=== PATIENT | female | born 1965 | race African-American/Black ===

== ENCOUNTER 2017-12-09 15:31 | Inpatient (IN) | payer OTHER ==
[2017-12-09 17:33] VITALS: BMI 31.8
--- NOTE | 2017-12-09 19:45 | HP ---
CIWA Score - CIWA Score Nausea/Vomitin-No Nausea/No Vomiting Muscle Tremors: 2 Anxiety: 3 Agitation: 1-Slight > Activity Paroxysmal Sweats: 3 Orientation: 2-Disoriented Date<2 days Tacttile Disturbances: 2-Mild Itch/Numbness/Burn (right arm and fingers) Auditory Disturbances: 2-Mild Harshness/Frighten Visual Disturbances: 2-Mild Sensitivity Headache: 0-None Present CIWA-Ar Total Score: 17 Admission ROS S - HPI Chief Complaint: I am here to get better, I recently relapse to use alcohol and crack , I am getting the sweats" Allergies/Adverse Reactions: Allergies Allergy/AdvReac Type Severity Reaction Status Date / Time aripiprazole [From Abilify] Allergy Intermediate Verified 12/09/17 18:21 chlorpromazine HCl Allergy Intermediate Verified 12/09/17 18:21 [From Thorazine] Penicillins Allergy Intermediate Rash Verified 12/09/17 18:21 risperidone [From Risperdal] Allergy Intermediate Verified 12/09/17 18:21 sulfamethoxazole Allergy Intermediate Rash Verified 12/09/17 18:21 [From Bactrim] trimethoprim [From Bactrim] Allergy Intermediate Rash Verified 12/09/17 18:21 ziprasidone HCl [From Geodon] Allergy Intermediate Verified 12/09/17 18:21 ziprasidone mesylate Allergy Intermediate Verified 12/09/17 18:21 [From Geodon] History of Present Illness: 52 yo female with hx of nicotine, alcohol and crack / cocaine dependence is here seeking detox. PMHX: gout, neuropathy, OA b/l knees and back, Bipolar Schizo- affective DM II, HTN, seizures on medications. Last seizure 8 months ago. Denies suicidal / homicidal ideation. Attempted suicide by drinking oils, December 2016. Longest period of sobriety 4 years. Last detox [facility] 12/22/15 - , reports recent relapse 9 months ago. - Ebola screening Have you traveled outside of the country in the last 21 days: No Have you had contact with anyone from an Ebola affected area: No Have you been sick,other than usual withdrawal symptoms: No Do you have a fever: No - Review of Systems Constitutional: Chills, Changes in sleep EENT: reports: Nose Congestion, Other (sore throat x 2 days) Cardiac: reports: No Symptoms Reported GI: reports: Poor Fluid Intake : reports: No Symptoms Reported Musculoskeletal: reports: Back Pain, Joint Pain Integumentary: reports: No Symptoms Reported Neuro: reports: Numbness, Tingling (right arm) Endocrine: reports: No Symptoms Reported Hematology: reports: No Symptoms Reported Psychiatric: reports: Orientated x3, Depressed Other Systems: Reviewed and Negative Patient History - Patient Medical History Hx Anemia: No Hx Asthma: Yes Hx Chronic Obstructive Pulmonary Disease (COPD): Yes Hx Cancer: No Hx Cardiac Disorders: No Hx Congestive Heart Failure: No Hx Hypertension: Yes Hx Hypercholesterolemia: Yes (ON CRESTOR) Hx Pacemaker: No HX Cerebrovascular Accident: No Hx Seizures: Yes (last seizure 8 months ago ) Hx Dementia: No Hx Diabetes: Yes Hx Gastrointestinal Disorders: Yes (Acids Reflux) Hx Liver Disease: No Hx Genitourinary Disorders: No Hx Sexually Transmitted Disorders: No Hx Renal Disease (ESRD): No Hx Thyroid Disease: No Hx Human Immunodeficiency Virus (HIV): Yes (since 1997 on med, reports compliance with medications ) Hx Hepatitis C: No Hx Depression: Yes Hx Suicide Attempt: Yes (8 months ago ) Hx Bipolar Disorder: Yes (schizoaffective disorder) Hx Schizophrenia: Yes - Patient Surgical History Past Surgical History: No Hx Neurologic Surgery: No Hx Cataract Extraction: No Hx Cardiac Surgery: No Hx Lung Surgery: No Hx Breast Surgery: No Hx Breast Biopsy: No Hx Abdominal Surgery: No Hx Appendectomy: No Hx Cholecystectomy: No Hx Genitourinary Surgery: No Hx Section: No Hx Orthopedic Surgery: No Anesthesia Reaction: No - PPD History Previous Implant?: Yes Documented Results: Positive w/proof PPD to be Administered?: No - Reproductive History Patient is a Female of Child Bearing Age (11 -55 yrs old): Yes Last Menstrual Period: 03/23/10 Patient : No - Smoking Cessation Smoking history: Current every day smoker Have you smoked in the past 12 months: Yes Aproximately how many cigarettes per day: 5 Cigars Per Day: 0 Hx Chewing Tobacco Use: No Initiated information on smoking cessation: Yes 'Breaking Loose' booklet given: 12/09/17 - Substance & Tx. History Hx Alcohol Use: Yes Hx Substance Use: Yes Substance Use Type: Alcohol, Cocaine Hx Substance Use Treatment: Yes ([facility] 12/22/15 - 12/26/15) - Substances Abused Alcohol Route: Oral Frequency: Daily Amount used: liquor- 2 pints, beer- 2 six packs Age of first use: 14 Date of Last Use: 12/09/17 Crack Route: Smoking Frequency: 1-2 times per week Amount used: $50 worth Age of first use: 18 Date of Last Use: 12/09/17 Family Disease History - Family Disease History Family Disease History: Heart Disease: Mother (HTN,DISEAED), Other: Father (DSDA ,ASTHMA,) Admission Physical Exam [facility] - Vital Signs Vital Signs: Vital Signs - 24 hr 12/09/17 17:31 Temperature 97.8 F Pulse Rate 128 H Respiratory 20 Rate Blood Pressure 158/106 - Physical General Appearance: Yes: Nourished, Disheveled, Mild Distress, Sweating, Anxious HEENTM: Yes: EOMI, Hearing grossly Normal, Normal ENT Inspection, Normocephalic , Normal Voice, KIMBERLEE, Pharynx Normal, Tm's normal Respiratory: Yes: Chest Non-Tender, Lungs Clear, Normal Breath Sounds, No Respiratory Distress, No Accessory Muscle Use Breast: Yes: Breast Exam Deferred Cardiology: Yes: Regular Rhythm, Regular Rate, S1, S2 Abdominal: Yes: Normal Bowel Sounds, Non Tender, Flat, Soft Genitourinary: Yes: Within Normal Limits Back: Yes: Normal Inspection Musculoskeletal: Yes: full range of Motion, Muscle Pain, Other (unstaeady gait) Extremities: Yes: Normal Capillary Refill, Normal Inspection, Normal Range of Motion, Non-Tender Neurological: Yes: coding specialist home health II-XII NML intact, Fully Oriented, Alert, Motor Strength 5/5, Depressed Affect Integumentary: Yes: Normal Color, Dry, Warm Lymphatic: Yes: Within Normal Limits - Diagnostic (1) Back pain Current Visit: Yes Status: Acute Qualifiers: Back pain location: low back pain Chronicity: acute Back pain laterality : midline Sciatica presence: without sciatica Qualified Code(s): M54.5 - Low back pain (2) Alcohol dependence with uncomplicated withdrawal Current Visit: Yes Status: Acute (3) COPD (chronic obstructive pulmonary disease) Current Visit: Yes Status: Chronic Qualifiers: Emphysema type: unspecified (4) Cocaine dependence Current Visit: Yes Status: Chronic (5) DM Diabetes mellitus type 2 Current Visit: Yes Status: Chronic (6) Gout Current Visit: Yes Status: Chronic Qualifiers: Gout site: foot Chronicity: chronic Laterality: unspecified laterality (7) Hepatitis C Current Visit: Yes Status: Chronic Qualifiers: Viral hepatitis chronicity: chronic Hepatic coma status: without hepatic coma Qualified Code(s): B18.2 - Chronic viral hepatitis C (8) Human immunodeficiency virus infection Current Visit: Yes Status: Chronic (9) Hypercholesteremia Current Visit: Yes Status: Chronic (10) Hypertension Current Visit: Yes Status: Chronic Qualifiers: Hypertension type: essential hypertension Qualified Code(s): I10 - Essential (primary) hypertension (11) Nicotine dependence Current Visit: Yes Status: Chronic Qualifiers: Nicotine product type: cigarettes Substance use status: uncomplicated Qualified Code(s): F17.210 - Nicotine dependence, cigarettes, uncomplicated (12) Osteoarthritis Current Visit: Yes Status: Chronic (13) Peripheral neuropathy Current Visit: Yes Status: Chronic Qualifiers: Peripheral neuropathy type: polyneuropathy, unspecified Qualified Code(s): G62.9 - Polyneuropathy, unspecified (14) Walker as ambulation aid Current Visit: Yes Status: Chronic Cleared for Admission S - Detox or Rehab [facility] Level of Care: Medically Managed Detox Regimen/Protocol: Librium [facility] Breath Alcohol Content Breath Alcohol Content: 0.078 Urine Pregancy Test - Result Urine Test Results: Negative- NO Line Present Urine Drug Screen - Results Drug Screen Negative: No Urine Drug Screen Results: YONY-Cocaine
[2017-12-09] MEDS ORDERED: chlordiazePOXIDE HCL 25 MG CAPSULE PO ONE (19:50)
[2017-12-09] MEDS ORDERED: IBUPROFEN 400 MG TABLET (FP) PO PRN (19:50)
[2017-12-09] MEDS ORDERED: MAGNESIUM HYDROX 2400MG/30ML ORAL SUSPENSION 30 ML CUP PO PRN (19:50)
[2017-12-09] MEDS ORDERED: hydrOXYzine PAMOATE 50 MG CAPSULE (FP) PO PRN (19:50)
[2017-12-09] MEDS ORDERED: chlordiazePOXIDE HCL 25 MG CAPSULE PO PRN (19:50)
[2017-12-09] MEDS ORDERED: P-EPHED 60MG/TRIPROLIDI 2.5MG TABLET PO PRN (19:50)
[2017-12-09] MEDS ORDERED: MAGNESIUM CITRATE 300 ML BOTTLE PO PRN (19:50)
[2017-12-09] MEDS ORDERED: MAG HYDROX/AL HYDROX/SIMETH 30 ML UNIT-DOSE CUP PO PRN (19:50)
[2017-12-09] MEDS ORDERED: ACETAMINOPHEN 325 MG TABLET (FP) PO PRN (19:50)
[2017-12-09] MEDS ORDERED: LOPERAMIDE HCL 2 MG CAPSULE PO PRN (19:50)
[2017-12-09] MEDS ORDERED: NICOTINE POLACRILEX 2 MG GUM BUC PRN (19:50)
[2017-12-09] MEDS ORDERED: MENTHOL/PHENOL 1 EACH UD MM PRN (19:50)
[2017-12-09] MEDS ORDERED: ALBUTEROL SO4 18 GM HFA INHALER IH PRN (19:52)
[2017-12-09] MEDS ORDERED: NIFEdipine E.R. 90 MG TABLET (FP) PO SCH (20:00)
[2017-12-09] MEDS ORDERED: cloNIDine HCL 0.1 MG TABLET PO PRN (21:53)
[2017-12-09] MEDS: THIAMINE HCL 100 MG TABLET (FP) PO SCH (22:24)
[2017-12-09] MEDS: chlordiazePOXIDE HCL 25 MG CAPSULE PO SCH (22:24)
[2017-12-09] MEDS: DOCUSATE SODIUM 100 MG CAPSULE (FP) PO SCH (22:25)
[2017-12-09] MEDS: levETIRAcetam 500 MG TABLET (FP) PO SCH (22:25)
[2017-12-09] MEDS: ASPIRIN 81 MG CHEWABLE TABLETS PO SCH (22:25)
[2017-12-09] MEDS: CYCLOBENZAPRINE HCL 10 MG TABLET (FP) PO PRN (22:26)
[2017-12-09 23:42] LABS: URINE APPEARANCE SLCLOUDY; URINE BILIRUBIN NEGATIVE (NEGATIVE); URINE BLOOD NEGATIVE (NEGATIVE); URINE COLOR AMBER; URINE GLUCOSE (UA) NEGATIVE (NEGATIVE); URINE KETONE TRACE (NEGATIVE); URINE NITRITE NEGATIVE (NEGATIVE)
[2017-12-09 23:45] LABS: URINE LEUK ESTERASE 3+ (NEGATIVE); URINE PROTEIN 2+ (NEGATIVE)
[2017-12-09 23:49] LABS: EPI CELLS RARE /HPF (FEW); URINE BACTERIA RARE /hpf (NONE SEEN); URINE HYALINE CAST 82 /lpf; URINE MUCUS MODERATE
[2017-12-10] MEDS: IBUPROFEN 400 MG TABLET (FP) PO PRN ×3 (00:06→17:12)
[2017-12-10] MEDS: DOCUSATE SODIUM 100 MG CAPSULE (FP) PO SCH ×3 (05:27→22:56)
[2017-12-10] MEDS: chlordiazePOXIDE HCL 25 MG CAPSULE PO SCH ×4 (05:27→22:57)
[2017-12-10] MEDS: guaiFENesin/D-METHORPHAN HB 10 ML UNIT-DOSE CUPS PO PRN ×3 (05:33→23:01)
[2017-12-10] MEDS: ALBUTEROL SO4 2.5/IPRATROPIUM 0.5 INH SOL 3 ML VIAL.NEB. NEB PRN (06:17)
[2017-12-10] MEDS: sitaGLIPtin PHOSPHATE 50 MG TABLET PO SCH (07:41)
[2017-12-10] MEDS: metFORMIN HCL 500 MG TABLET (FP) PO SCH ×2 (07:41→17:08)
--- NOTE | 2017-12-10 08:43 | EKG ---
Test Reason : Blood Pressure : / mmHG Vent. Rate : 117 BPM Atrial Rate : 117 BPM P-R Int : 160 ms QRS Dur : 064 ms QT Int : 332 ms P-R-T Axes : 070 021 036 degrees QTc Int : 463 ms SINUS TACHYCARDIA POSSIBLE LEFT ATRIAL ENLARGEMENT POSSIBLE ANTERIOR INFARCT , AGE UNDETERMINED ABNORMAL ECG WHEN COMPARED WITH ECG OF 10-FEB-2014 15:39, NO SIGNIFICANT CHANGE WAS FOUND Confirmed by EARL SLADE, SHONDA ([id number]) on 12/10/2017 8:43:23 AM Referred By: Confirmed By:SHONDA ELLIOTT MD
[2017-12-10 10:28] LABS: HEMATOCRIT 33.9 % (32.4-45.2); HEMOGLOBIN 11.3 GM/dL (10.7-15.3); MCH 28.9 pg (25.7-33.7); MCHC 33.4 g/dl (32.0-36.0); MEAN CELL VOLUME 86.5 fl (80-96); MEAN PLT VOLUME 8.3 fl (7.5-11.1); PLATELET COUNT 280 K/MM3 (134-434); RBC 3.91 M/mm3 (3.60-5.2); RDW 15.1 % (11.6-15.6); WHITE BLOOD COUNT 4.1 K/mm3 (4.0-10.0)
[2017-12-10] MEDS ORDERED: QUEtiapine FUMARATE 100 MG TABLET (FP) PO SCH (10:30)
[2017-12-10 10:32] LABS: CALCIUM 8.3 mg/dL (8.5-10.1); CHLORIDE 111 mmol/L (98-107); POTASSIUM 3.7 mmol/L (3.5-5.1); SGOT/AST 53 U/L (15-37); SGPT/ALT 37 U/L (12-78); SODIUM 143 mmol/L (136-145)
[2017-12-10 10:36] LABS: ALBUMIN 2.5 g/dl (3.4-5.0); ALK PHOS 65 U/L (45-117); ANION GAP 10 (8-16); BILIRUBIN,TOTAL 0.4 mg/dL (0.2-1.0); BLOOD UREA NITROGEN 28 mg/dL (7-18); CO2 22 mmol/L (21-32); CREATININE 1.1 mg/dL (0.55-1.02); GLUCOSE,RANDOM 93 mg/dL (74-106); TOT PROT 7.8 g/dl (6.4-8.2)
[2017-12-10] MEDS: LISINOPRIL 20 MG TABLET (FP) PO SCH (10:43)
[2017-12-10] MEDS: amLODIPine BESYLATE 10 MG TABLET (FP) PO SCH (10:43)
[2017-12-10] MEDS: PRENATAL VITAMINS W/ FOLIC ACID TABLET (FP) PO SCH (10:43)
[2017-12-10] MEDS: COLCHICINE 0.6 MG TABLET (FP) PO SCH (10:43)
[2017-12-10] MEDS: ASPIRIN 81 MG CHEWABLE TABLETS PO SCH (10:44)
[2017-12-10] MEDS: levETIRAcetam 500 MG TABLET (FP) PO SCH ×2 (10:44→22:58)
--- NOTE | 2017-12-10 10:57 | PN ---
S CIWA - CIWA Score Nausea/Vomitin Muscle Tremors: 2 Anxiety: 3 Agitation: 2 Paroxysmal Sweats: 3 Orientation: 0-Oriented Tacttile Disturbances: 3-Moderate Itch/Numb/Burn Auditory Disturbances: 0-None Visual Disturbances: 0-None Headache: 0-None Present CIWA-Ar Total Score: 15 [facility] Progress Note (SOAP) Subjective: interrupted sleep, sweats, knee and leg pains . Objective: 12/10/17 10:53 Vital Signs Temperature 98.1 F 12/10/17 09:47 Pulse Rate 102 H 12/10/17 09:47 Respiratory Rate 18 12/10/17 09:47 Blood Pressure 132/80 12/10/17 09:47 O2 Sat by Pulse Oximetry (%) Laboratory Tests 12/09/17 12/10/17 12/10/17 21:09 05:29 07:00 WBC 4.1 RBC 3.91 Hgb 11.3 Hct 33.9 MCV 86.5 MCH 28.9 MCHC 33.4 RDW 15.1 Plt Count 280 D MPV 8.3 Sodium Potassium Chloride Carbon Dioxide Anion Gap BUN Creatinine Creat Clearance w eGFR POC Glucometer 94 Random Glucose Calcium Total Bilirubin AST ALT Alkaline Phosphatase Total Protein Albumin Urine Color Jannet Urine Appearance Slcloudy Urine pH 5.0 Ur Specific [place] 1.025 Urine Protein 2+ H Urine Glucose (UA) Negative Urine Ketones Trace H Urine Blood Negative Urine Nitrite Negative Urine Bilirubin Negative Urine Urobilinogen 2.0 H Ur Leukocyte Esterase 3+ H Urine WBC (Auto) 106 Urine RBC (Auto) 4 Ur Epithelial Cells Rare Urine Bacteria Rare Hyaline Casts 82 Urine Mucus Moderate 12/10/17 07:00 WBC RBC Hgb Hct MCV MCH MCHC RDW Plt Count MPV Sodium 143 Potassium 3.7 Chloride 111 H Carbon Dioxide 22 Anion Gap 10 BUN 28 H Creatinine 1.1 H Creat Clearance w eGFR 52.16 POC Glucometer Random Glucose 93 Calcium 8.3 L Total Bilirubin 0.4 D AST 53 H ALT 37 Alkaline Phosphatase 65 Total Protein 7.8 Albumin 2.5 L Urine Color Urine Appearance Urine pH Ur Specific [place] Urine Protein Urine Glucose (UA) Urine Ketones Urine Blood Urine Nitrite Urine Bilirubin Urine Urobilinogen Ur Leukocyte Esterase Urine WBC (Auto) Urine RBC (Auto) Ur Epithelial Cells Urine Bacteria Hyaline Casts Urine Mucus pt aox3 lying in bed in nad Assessment: 12/10/17 10:53 withdrawal sx's hiv hcv dm neuropathy gout dehydration -elevated bun 12/10/17 10:56 Plan: cont. detox increase fluids cont. present meds monitor bgm's
[2017-12-10] MEDS: BUDESONIDE/FORMETEROL FUMARATE 80/4.5 mcg INHALER IH SCH ×4 (11:00→23:08)
--- NOTE | 2017-12-10 11:33 | CONSULT ---
[facility] Psychiatric Consult - Data Date of interview: 12/10/17 Admission source: [facility] Identifying data: Pt. is a 52 year old single female, without kids, unemployed, lives in a half-way and receving SSI. This is one of multiple admissions for patient. Pt. admitted to for alcohol and cocaine dependence. Substance Abuse History: Following information confirmed with Ms. Barrios: Smoking Cessation. Smoking history: Current every day smoker. Have you smoked in the past 12 months: Yes. Aproximately how many cigarettes per day: 5. Cigars Per Day: 0. Hx Chewing Tobacco Use: No. Initiated information on smoking cessation: Yes. 'Breaking Loose' booklet given: 12/09/17. - Substance & Tx. History. Hx Alcohol Use: Yes. Hx Substance Use: Yes. Substance Use Type : Alcohol, Cocaine. Hx Substance Use Treatment: Yes ([facility] 12/22/15 - 12/26/15). - Substances Abused. Alcohol. Route: Oral. Frequency: Daily. Amount used : liquor- 2 pints, beer- 2 six packs. Age of first use: 14. Date of Last Use: 12/09/17. Crack. Route: Smoking. Frequency: 1-2 times per week. Amount used: $50 worth. Age of first use: 18. Date of Last Use: 12/09/17 Medical History: Asthma, hypertension, hypercholesterolemia, seizures (last seizure was 8 months ago), Diabetes, Acid reflux, and HIV Psychiatric History: Pt. reports multiple psychiatric hospitalizations throughout the years. Most recent hospitalization was last year (pt. unable to recall hospital). Pt. reports being hospitalized at [facility], [facility] , [place], [facility] and [facility]. Outpatient care is provided by [facility] outpatient care. Pt. has a diagnosis of Bipolar disorder, schizoaffective disorder. Reports being prescribed Seroquel 200mg BID + Seroquel 400mg qhs + gabapentin 800mg TID + Prozasin ( unknown dose). Pt. reports having several sucide attempts with most recent SA occuring at 51 years of age via overdose. Pt. currently denies suicidal and homicidal ideation. Physical/Sexual Abuse/Trauma History: Denies. Mental Status Exam - Mental Status Exam Alert and Oriented to: Time, Place, Person Cognitive Function: Good Patient Appearance: Unkempt Speech Pattern: Delayed Voice Loudness: Moderately Soft/Quiet Thought Process: Goal Oriented Thought Disorder: Not Present Hallucinations: Denies Suicidal Ideation: Denies Homicidal Ideation: Denies Insight/Judgement: Poor Sleep: Poorly Appetite: Fair Muscle strength/Tone: Mild Hypertonicity Psychiatric Findings - Problem List ([place] 1, 2,3) (1) Schizoaffective disorder Current Visit: Yes Status: Chronic Comment: History. (2) Alcohol dependence with uncomplicated withdrawal Current Visit: Yes Status: Acute (3) Cocaine dependence Current Visit: Yes Status: Chronic (4) Nicotine dependence Current Visit: Yes Status: Chronic Qualifiers: Nicotine product type: cigarettes Substance use status: uncomplicated Qualified Code(s): F17.210 - Nicotine dependence, cigarettes, uncomplicated - Initial Treatment Plan Initial Treatment Plan: Psychoeducation provided. Detoxification provided. Seroquel 100mg PO daily + Seroquel 200mg qhs to be ordered for 12/10/17 + Gapapentin 800mg TID. Per patient's request Seroquel to be increased to 200mg BID beginning on 12/11/17. Verbal consent given. Benefits and side effects discussed. Will continue to monitor.
[2017-12-10] MEDS: NICOTINE 14 MG/24 HOURS TOPICAL PATCH TD SCH (12:07)
[2017-12-10] MEDS: GABAPENTIN 400 MG CAPSULE (FP) PO SCH ×2 (14:51→22:57)
--- NOTE | 2017-12-10 15:38 | EKG ---
Test Reason : Blood Pressure : / mmHG Vent. Rate : 104 BPM Atrial Rate : 104 BPM P-R Int : 162 ms QRS Dur : 072 ms QT Int : 356 ms P-R-T Axes : 049 002 035 degrees QTc Int : 468 ms SINUS TACHYCARDIA POSSIBLE LEFT ATRIAL ENLARGEMENT POSSIBLE ANTERIOR INFARCT (CITED ON OR BEFORE 09-DEC-2017) ABNORMAL ECG WHEN COMPARED WITH ECG OF 09-DEC-2017 21:41, T WAVE AMPLITUDE HAS DECREASED IN ANTEROLATERAL LEADS Confirmed by EARL SLADE, SHONDA ([id number]) on 12/10/2017 3:37:47 PM Referred By: Confirmed By:SHONDA ELLIOTT MD
[2017-12-10] MEDS: QUEtiapine FUMARATE 200 MG TABLET PO SCH (22:57)
[2017-12-10] MEDS: THIAMINE HCL 100 MG TABLET (FP) PO SCH (22:57)
[2017-12-11] MEDS: GABAPENTIN 400 MG CAPSULE (FP) PO SCH ×3 (06:27→22:44)
[2017-12-11] MEDS: chlordiazePOXIDE HCL 25 MG CAPSULE PO SCH ×3 (06:27→17:38)
[2017-12-11] MEDS: DOCUSATE SODIUM 100 MG CAPSULE (FP) PO SCH ×3 (06:27→22:44)
[2017-12-11] MEDS: metFORMIN HCL 500 MG TABLET (FP) PO SCH ×2 (06:27→17:38)
[2017-12-11] MEDS: sitaGLIPtin PHOSPHATE 50 MG TABLET PO SCH (06:28)
[2017-12-11] MEDS: IBUPROFEN 400 MG TABLET (FP) PO PRN ×2 (06:30→09:26)
[2017-12-11] MEDS: QUEtiapine FUMARATE 200 MG TABLET PO SCH ×2 (09:19→22:44)
[2017-12-11] MEDS: ASPIRIN 81 MG CHEWABLE TABLETS PO SCH (09:19)
[2017-12-11] MEDS: PRENATAL VITAMINS W/ FOLIC ACID TABLET (FP) PO SCH (09:20)
[2017-12-11] MEDS: LISINOPRIL 20 MG TABLET (FP) PO SCH (09:21)
[2017-12-11] MEDS: amLODIPine BESYLATE 10 MG TABLET (FP) PO SCH ×2 (09:21→09:22)
[2017-12-11] MEDS: BUDESONIDE/FORMETEROL FUMARATE 80/4.5 mcg INHALER IH SCH ×2 (09:21→22:44)
[2017-12-11] MEDS: levETIRAcetam 500 MG TABLET (FP) PO SCH ×2 (09:22→22:44)
[2017-12-11] MEDS: COLCHICINE 0.6 MG TABLET (FP) PO SCH (09:22)
[2017-12-11] MEDS: guaiFENesin/D-METHORPHAN HB 10 ML UNIT-DOSE CUPS PO PRN ×2 (09:27→14:45)
[2017-12-11] MEDS: NICOTINE 14 MG/24 HOURS TOPICAL PATCH TD SCH (10:14)
[2017-12-11] MEDS: ALBUTEROL SO4 2.5/IPRATROPIUM 0.5 INH SOL 3 ML VIAL.NEB. NEB PRN (10:41)
--- NOTE | 2017-12-11 12:32 | PN ---
S CIWA - CIWA Score Nausea/Vomitin Muscle Tremors: 3 Anxiety: 3 Agitation: 4-Moderately Restless Paroxysmal Sweats: 3 Orientation: 0-Oriented Tacttile Disturbances: 0-None Auditory Disturbances: 0-None Visual Disturbances: 0-None Headache: 0-None Present CIWA-Ar Total Score: 15 [facility] Progress Note (SOAP) Subjective: Sweats shakes sleep disturbance Objective: 12/11/17 12:31 A & ox 3 Ambulates with walker irritable Not in acute distress Vital Signs Temperature 96.8 F L 12/11/17 10:00 Pulse Rate 119 H 12/11/17 10:00 Respiratory Rate 20 12/11/17 10:00 Blood Pressure 125/100 12/11/17 10:00 O2 Sat by Pulse Oximetry (%) Assessment: 12/11/17 12:31 withdrawal sx Plan: continue detox Vistaril PRN Increase hydration
[2017-12-11] MEDS: chlordiazePOXIDE 5 MG CAPSULE PO SCH (22:44)
[2017-12-11] MEDS: THIAMINE HCL 100 MG TABLET (FP) PO SCH (22:45)
--- NOTE | 2017-12-12 06:06 | PN ---
[facility] Progress Note Note: CLIENT SEEN AT BEDSIDE FOR UNWITNESSED FALL. CLIENT STATES SHE FELL BACKWARDS WHILE STANDING WITH HER ROLLATOR AFTER FEELING DIZZY. SHE STATES SHE HIT THE BACK OF HER HEAD. DENIES PAIN, SOB, LOC, C.P. Last Vital Signs Temp Pulse Resp BP Pulse Ox 97.7 F 126 H 20 144/80 12/12/17 05:45 12/12/17 05:45 12/12/17 05:45 12/12/17 05:45 AWAKE/ALERT X3 NAD SEATED AT BEDSIDE HEENT: NCAT, PERRLA SKIN INTACT EXTREMITIES: FROM X 4 NO VISIBLE INJURIES NOTED S/P UNWITNESSED FALL P-INITIATE FALL PROTOCOL #1 CLIENT IS REFUSING HEAD CT SCAN AT THIS TIME; RISK OF NOT HAVING THIS TEST DONE D/W CLIENT. SHE VERBALIZES UNDERSTANDING; REFUSAL FORM SIGNED BY THE PATIENT. MONITOR CLOSELY
[2017-12-12] MEDS: metFORMIN HCL 500 MG TABLET (FP) PO SCH ×2 (06:52→18:04)
[2017-12-12] MEDS: DOCUSATE SODIUM 100 MG CAPSULE (FP) PO SCH ×3 (06:53→23:02)
[2017-12-12] MEDS: sitaGLIPtin PHOSPHATE 50 MG TABLET PO SCH (06:53)
[2017-12-12] MEDS: GABAPENTIN 400 MG CAPSULE (FP) PO SCH ×3 (06:53→23:01)
[2017-12-12] MEDS: IBUPROFEN 400 MG TABLET (FP) PO PRN ×2 (06:53→14:42)
[2017-12-12] MEDS: chlordiazePOXIDE 5 MG CAPSULE PO SCH ×3 (06:58→18:05)
[2017-12-12] MEDS: ALBUTEROL SO4 2.5/IPRATROPIUM 0.5 INH SOL 3 ML VIAL.NEB. NEB PRN (07:50)
[2017-12-12] MEDS: ASPIRIN 81 MG CHEWABLE TABLETS PO SCH (11:24)
[2017-12-12] MEDS: levETIRAcetam 500 MG TABLET (FP) PO SCH ×2 (11:24→23:01)
[2017-12-12] MEDS: amLODIPine BESYLATE 10 MG TABLET (FP) PO SCH (11:24)
[2017-12-12] MEDS: LISINOPRIL 20 MG TABLET (FP) PO SCH ×2 (11:25→21:25)
[2017-12-12] MEDS: COLCHICINE 0.6 MG TABLET (FP) PO SCH (11:26)
[2017-12-12] MEDS: BUDESONIDE/FORMETEROL FUMARATE 80/4.5 mcg INHALER IH SCH ×2 (11:27→23:02)
[2017-12-12] MEDS: PRENATAL VITAMINS W/ FOLIC ACID TABLET (FP) PO SCH (11:27)
[2017-12-12] MEDS: NICOTINE 14 MG/24 HOURS TOPICAL PATCH TD SCH (11:27)
[2017-12-12] MEDS: QUEtiapine FUMARATE 200 MG TABLET PO SCH ×2 (11:31→23:01)
--- NOTE | 2017-12-12 13:30 | PN ---
[facility] Progress Note (SOAP) Subjective: alert oriented x 3, no acute distress denies pain steady gait coherent, social with peers in day room patient denies sequela from fall earlier today Objective: 12/12/17 13:26 Vital Signs Temperature 97.9 F 12/12/17 11:35 Pulse Rate 120 H 12/12/17 11:35 Respiratory Rate 20 12/12/17 11:35 Blood Pressure 141/86 12/12/17 11:35 O2 Sat by Pulse Oximetry (%) Laboratory Last Values WBC 4.1 K/mm3 (4.0-10.0) 12/10/17 07:00 RBC 3.91 M/mm3 (3.60-5.2) 12/10/17 07:00 Hgb 11.3 GM/dL (10.7-15.3) 12/10/17 07:00 Hct 33.9 % (32.4-45.2) 12/10/17 07:00 MCV 86.5 fl (80-96) 12/10/17 07:00 MCH 28.9 pg (25.7-33.7) 12/10/17 07:00 MCHC 33.4 g/dl (32.0-36.0) 12/10/17 07:00 RDW 15.1 % (11.6-15.6) 12/10/17 07:00 Plt Count 280 K/MM3 (134-434) D 12/10/17 07:00 MPV 8.3 fl (7.5-11.1) 12/10/17 07:00 Sodium 143 mmol/L (136-145) 12/10/17 07:00 Potassium 3.7 mmol/L (3.5-5.1) 12/10/17 07:00 Chloride 111 mmol/L (98-107) H 12/10/17 07:00 Carbon Dioxide 22 mmol/L (21-32) 12/10/17 07:00 Anion Gap 10 (8-16) 12/10/17 07:00 BUN 28 mg/dL (7-18) H 12/10/17 07:00 Creatinine 1.1 mg/dL (0.55-1.02) H 12/10/17 07:00 Creat Clearance w eGFR 52.16 (>60) 12/10/17 07:00 POC Glucometer 121 UNITS (80-120) 12/12/17 05:35 Random Glucose 93 mg/dL (74-106) 12/10/17 07:00 Calcium 8.3 mg/dL (8.5-10.1) L 12/10/17 07:00 Total Bilirubin 0.4 mg/dL (0.2-1.0) D 12/10/17 07:00 AST 53 U/L (15-37) H 12/10/17 07:00 ALT 37 U/L (12-78) 12/10/17 07:00 Alkaline Phosphatase 65 U/L (45-117) 12/10/17 07:00 Total Protein 7.8 g/dl (6.4-8.2) 12/10/17 07:00 Albumin 2.5 g/dl (3.4-5.0) L 12/10/17 07:00 Urine Color Jannet 12/09/17 21:09 Urine Appearance Slcloudy 12/09/17 21:09 Urine pH 5.0 (5.0-8.0) 12/09/17 21:09 Ur Specific [place] 1.025 (1.001-1.035) 12/09/17 21:09 Urine Protein 2+ (NEGATIVE) H 12/09/17 21:09 Urine Glucose (UA) Negative (NEGATIVE) 12/09/17 21:09 Urine Ketones Trace (NEGATIVE) H 12/09/17 21:09 Urine Blood Negative (NEGATIVE) 12/09/17 21:09 Urine Nitrite Negative (NEGATIVE) 12/09/17 21:09 Urine Bilirubin Negative (NEGATIVE) 12/09/17 21:09 Urine Urobilinogen 2.0 mg/dL (0.2-1.0) H 12/09/17 21:09 Ur Leukocyte Esterase 3+ (NEGATIVE) H 12/09/17 21:09 Urine WBC (Auto) 106 /hpf (3-5) 12/09/17 21:09 Urine RBC (Auto) 4 /hpf (0-3) 12/09/17 21:09 Ur Epithelial Cells Rare /HPF (FEW) 12/09/17 21:09 Urine Bacteria Rare /hpf (NONE SEEN) 12/09/17 21:09 Hyaline Casts 82 /lpf 12/09/17 21:09 Urine Mucus Moderate 12/09/17 21:09 RPR Titer Nonreactive (NONREACTIVE) 12/10/17 07:00 LAB NOTED Assessment: 12/12/17 13:27 MILD WITHDRAWAL SX Plan: MEDICALLY SUPERVISED DETOX
[2017-12-12] MEDS: guaiFENesin/D-METHORPHAN HB 10 ML UNIT-DOSE CUPS PO PRN (14:44)
--- NOTE | 2017-12-12 16:06 | PN ---
[facility] Progress Note Note: around 1644 received nurse called that the patient c/o left shoulder pain observed the patient lying on bed unable to move her left shoulder from fall earlier today patient states that her legs are weak walker can not assist her ambulation ambulance call information provided to the er that the patient needs left shoulder x ray due to fall earlier today unable to mode her left shoulder and weakness of both legs wheelchair for ambulation er evaluation x 1
[2017-12-12] MEDS: CYCLOBENZAPRINE HCL 10 MG TABLET (FP) PO PRN (21:31)
[2017-12-12] MEDS: THIAMINE HCL 100 MG TABLET (FP) PO SCH (23:01)
[2017-12-12] MEDS: chlordiazePOXIDE HCL 10 MG CAPSULE PO SCH (23:02)
[2017-12-13] MEDS: IBUPROFEN 400 MG TABLET (FP) PO PRN (03:33)
[2017-12-13] MEDS: guaiFENesin/D-METHORPHAN HB 10 ML UNIT-DOSE CUPS PO PRN (03:35)
[2017-12-13] MEDS: GABAPENTIN 400 MG CAPSULE (FP) PO SCH (06:36)
[2017-12-13] MEDS: sitaGLIPtin PHOSPHATE 50 MG TABLET PO SCH (06:37)
[2017-12-13] MEDS: chlordiazePOXIDE HCL 10 MG CAPSULE PO SCH ×2 (06:37→11:09)
[2017-12-13] MEDS: metFORMIN HCL 500 MG TABLET (FP) PO SCH (06:37)
[2017-12-13] MEDS: DOCUSATE SODIUM 100 MG CAPSULE (FP) PO SCH (06:37)
[2017-12-13] MEDS: ALBUTEROL SO4 2.5/IPRATROPIUM 0.5 INH SOL 3 ML VIAL.NEB. NEB PRN (08:11)
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
--- NOTE | 2017-12-13 08:59 | DS ---
[facility] Detox Discharge Summary Admission Date: 12/09/17 Discharge Date: 12/13/17 - History Present History: Alcohol Dependence - Physical Exam Results Vital Signs: Vital Signs Temperature 97.4 F L 12/13/17 06:30 Pulse Rate 122 H 12/13/17 06:30 Respiratory Rate 19 12/13/17 06:30 Blood Pressure 143/61 12/13/17 06:30 O2 Sat by Pulse Oximetry (%) Pertinent Admission Physical Exam Findings: withdrawal sx Vital Signs Temperature 97.4 F L 12/13/17 06:30 Pulse Rate 122 H 12/13/17 06:30 Respiratory Rate 19 12/13/17 06:30 Blood Pressure 143/61 12/13/17 06:30 O2 Sat by Pulse Oximetry (%) Laboratory Last Values WBC 4.1 K/mm3 (4.0-10.0) 12/10/17 07:00 RBC 3.91 M/mm3 (3.60-5.2) 12/10/17 07:00 Hgb 11.3 GM/dL (10.7-15.3) 12/10/17 07:00 Hct 33.9 % (32.4-45.2) 12/10/17 07:00 MCV 86.5 fl (80-96) 12/10/17 07:00 MCH 28.9 pg (25.7-33.7) 12/10/17 07:00 MCHC 33.4 g/dl (32.0-36.0) 12/10/17 07:00 RDW 15.1 % (11.6-15.6) 12/10/17 07:00 Plt Count 280 K/MM3 (134-434) D 12/10/17 07:00 MPV 8.3 fl (7.5-11.1) 12/10/17 07:00 Sodium 143 mmol/L (136-145) 12/10/17 07:00 Potassium 3.7 mmol/L (3.5-5.1) 12/10/17 07:00 Chloride 111 mmol/L (98-107) H 12/10/17 07:00 Carbon Dioxide 22 mmol/L (21-32) 12/10/17 07:00 Anion Gap 10 (8-16) 12/10/17 07:00 BUN 28 mg/dL (7-18) H 12/10/17 07:00 Creatinine 1.1 mg/dL (0.55-1.02) H 12/10/17 07:00 Creat Clearance w eGFR 52.16 (>60) 12/10/17 07:00 POC Glucometer 109 UNITS (80-120) 12/13/17 06:30 Random Glucose 93 mg/dL (74-106) 12/10/17 07:00 Calcium 8.3 mg/dL (8.5-10.1) L 12/10/17 07:00 Total Bilirubin 0.4 mg/dL (0.2-1.0) D 12/10/17 07:00 AST 53 U/L (15-37) H 12/10/17 07:00 ALT 37 U/L (12-78) 12/10/17 07:00 Alkaline Phosphatase 65 U/L (45-117) 12/10/17 07:00 Total Protein 7.8 g/dl (6.4-8.2) 12/10/17 07:00 Albumin 2.5 g/dl (3.4-5.0) L 12/10/17 07:00 Urine Color Jannet 12/09/17 21:09 Urine Appearance Slcloudy 12/09/17 21:09 Urine pH 5.0 (5.0-8.0) 12/09/17 21:09 Ur Specific [place] 1.025 (1.001-1.035) 12/09/17 21:09 Urine Protein 2+ (NEGATIVE) H 12/09/17 21:09 Urine Glucose (UA) Negative (NEGATIVE) 12/09/17 21:09 Urine Ketones Trace (NEGATIVE) H 12/09/17 21:09 Urine Blood Negative (NEGATIVE) 12/09/17 21:09 Urine Nitrite Negative (NEGATIVE) 12/09/17 21:09 Urine Bilirubin Negative (NEGATIVE) 12/09/17 21:09 Urine Urobilinogen 2.0 mg/dL (0.2-1.0) H 12/09/17 21:09 Ur Leukocyte Esterase 3+ (NEGATIVE) H 12/09/17 21:09 Urine WBC (Auto) 106 /hpf (3-5) 12/09/17 21:09 Urine RBC (Auto) 4 /hpf (0-3) 12/09/17 21:09 Ur Epithelial Cells Rare /HPF (FEW) 12/09/17 21:09 Urine Bacteria Rare /hpf (NONE SEEN) 12/09/17 21:09 Hyaline Casts 82 /lpf 12/09/17 21:09 Urine Mucus Moderate 12/09/17 21:09 Levetiracetam 20.4 MCG/ML (10.0-40.0) 12/10/17 07:00 RPR Titer Nonreactive (NONREACTIVE) 12/10/17 07:00 lab noted - Treatment Hospital Course: Detox Protocol Followed, Detoxed Safely, Responded well, Discharged Condition Good, Rehab Referral Accepted Patient has Accepted a Rehab Referral to: [facility] - Medication Discharge Medications: Ambulatory Orders Quetiapine Fumarate [Seroquel -] 200 mg PO BID #60 tablet 12/23/15 Docusate Sodium [Colace -] 100 mg PO TID #90 capsule 12/26/15 Methylprednisolone [Medrol Dose Pernell] 4 mg PO ASDIR #21 tablet 12/26/15 predniSONE [Deltasone -] 40 mg PO DAILY 12/26/15 Aspirin [ASA -] 81 mg PO DAILY 12/28/15 Nifedipine [Procardia Xl] 90 mg PO DAILY 12/28/15 Amitriptyline HCl [Elavil -] 25 mg PO TID #90 tablet 01/01/16 Gabapentin [Neurontin -] 800 mg PO TID #120 capsule 01/01/16 Quetiapine Fumarate [Seroquel -] 400 mg PO HS #30 tablet 01/01/16 Albuterol Sulfate Inhaler - [Ventolin HFA Inhaler -] 2 puff IH Q4HPO PRN #1 inhaler 12/13/17 Amlodipine Besylate [Norvasc -] 10 mg PO DAILY #30 tablet 12/13/17 Budesonide/Formeterol Fumarate [SYMBICORT 80/4.5mcg -] 0 puff IH BID #1 inhaler 12/13/17 Colchicine 0.6 mg PO DAILY #30 capsule 12/13/17 Gabapentin [Neurontin -] 800 mg PO TID #90 capsule 12/13/17 Lisinopril [Prinivil -] 40 mg PO DAILY #30 tablet 12/13/17 Sitagliptin Phosphate [Januvia -] 50 mg PO DAILY@0700 #30 tablet 12/13/17 levETIRAcetam [Keppra -] 1,000 mg PO BID #60 tablet 12/13/17 metFORMIN HCL [Glucophage -] 500 mg PO BID@0700,1630 #60 tablet 12/13/17 - Diagnosis (1) DM Diabetes mellitus type 2 Current Visit: Yes Status: Chronic (2) Human immunodeficiency virus infection Current Visit: Yes Status: Chronic (3) Asthma Current Visit: Yes Status: Chronic (4) Hepatitis C Current Visit: Yes Status: Chronic Qualifiers: Viral hepatitis chronicity: chronic Hepatic coma status: without hepatic coma Qualified Code(s): B18.2 - Chronic viral hepatitis C (5) Hypertension Current Visit: Yes Status: Chronic Qualifiers: Hypertension type: essential hypertension Qualified Code(s): I10 - Essential (primary) hypertension (6) Alcohol dependence with uncomplicated withdrawal Current Visit: Yes Status: Acute - AMA Did Patient Leave Against Medical Advice: No
[2017-12-13 10:42] VITALS: BP 150/90; PULSE 114; TEMP 97.9
[2017-12-13] MEDS: amLODIPine BESYLATE 10 MG TABLET (FP) PO SCH (11:09)
[2017-12-13] MEDS: LISINOPRIL 20 MG TABLET (FP) PO SCH (11:09)
[2017-12-13] MEDS: levETIRAcetam 500 MG TABLET (FP) PO SCH (11:09)
[2017-12-13] MEDS: QUEtiapine FUMARATE 200 MG TABLET PO SCH (11:09)
[2017-12-13] MEDS: ASPIRIN 81 MG CHEWABLE TABLETS PO SCH (11:09)
[2017-12-13] MEDS: COLCHICINE 0.6 MG TABLET (FP) PO SCH (11:10)
[2017-12-13] MEDS: BUDESONIDE/FORMETEROL FUMARATE 80/4.5 mcg INHALER IH SCH (11:12)
[2017-12-13] MEDS: PRENATAL VITAMINS W/ FOLIC ACID TABLET (FP) PO SCH (11:13)
[2017-12-13] MEDS: NICOTINE 14 MG/24 HOURS TOPICAL PATCH TD SCH (11:13)
== END 2017-12-13 11:22 | disposition other institution (70) | DRG 775 ==
LOC: YASAS 15:31 → Y6N 18:26
PROVIDERS: ADMIT Internal Medicine; ATTEND Internal Medicine
PROC: HZ2ZZZZ Detoxification Services for Substance Abuse Treatment (ICD-10-PCS; principal; 2017-12-09)
DX: F10.230 Alcohol dependence with withdrawal, uncomplicated (principal); F12.20 Cannabis dependence, uncomplicated; F17.213 Nicotine dependence, cigarettes, with withdrawal; F25.9 Schizoaffective disorder, unspecified; J45.909 Unspecified asthma, uncomplicated; E11.9 Type 2 diabetes mellitus without complications; I10 Essential (primary) hypertension; K21.9 Gastro-esophageal reflux disease without esophagitis; Z21 Asymptomatic human immunodeficiency virus [HIV] infection status; B18.2 Chronic viral hepatitis C; E78.00 Pure hypercholesterolemia, unspecified; E86.0 Dehydration; M19.90 Unspecified osteoarthritis, unspecified site; M10.9 Gout, unspecified; G62.9 Polyneuropathy, unspecified; R26.2 Difficulty in walking, not elsewhere classified; M25.512 Pain in left shoulder; Z79.84 Long term (current) use of oral hypoglycemic drugs; Z86.69 Personal history of other diseases of the nervous system and sense organs; Z88.2 Allergy status to sulfonamides; Z88.0 Allergy status to penicillin; M54.5 Low back pain; S09.90XA Unspecified injury of head, initial encounter; W18.39XA Other fall on same level, initial encounter; Y93.89 Activity, other specified; Y92.239 Unspecified place in hospital as the place of occurrence of the external cause
CPT/HCPCS: 36415; 71046-TC-FY; 80053; 81003; 81015; 82962; 85027; 86593; 93005; 93010; 94640

== ENCOUNTER 2017-12-12 17:13 | Emergency (ER) | payer OTHER ==
[2017-12-12 17:24] VITALS: BP 140/100; TEMP 98.3; BMI 31.8
[2017-12-12] MEDS ORDERED: IBUPROFEN 400 MG TABLET (FP) PO ONE ×2 (17:28→17:34)
--- NOTE | 2017-12-12 17:28 | PDOC ---
History of Present Illness - General Chief Complaint: Injury Stated Complaint: FALL/SHOULDER PAIN Time Seen by Provider: 12/12/17 17:17 History Source: Patient - History of Present Illness Occurred: reports: this afternoon Severity: reports: moderate Upper Extremity Pain Location: left: shoulder Method of Injury: reports: fell Past History - Past Medical History Allergies/Adverse Reactions: Allergies Allergy/AdvReac Type Severity Reaction Status Date / Time aripiprazole [From Abilify] Allergy Intermediate Verified 12/12/17 17:24 chlorpromazine HCl Allergy Intermediate Verified 12/12/17 17:24 [From Thorazine] Penicillins Allergy Intermediate Rash Verified 12/12/17 17:24 risperidone [From Risperdal] Allergy Intermediate Verified 12/12/17 17:24 sulfamethoxazole Allergy Intermediate Rash Verified 12/12/17 17:24 [From Bactrim] trimethoprim [From Bactrim] Allergy Intermediate Rash Verified 12/12/17 17:24 ziprasidone HCl [From Geodon] Allergy Intermediate Verified 12/12/17 17:24 ziprasidone mesylate Allergy Intermediate Verified 12/12/17 17:24 [From Geodon] Home Medications: Ambulatory Orders Gabapentin [Neurontin -] 800 mg PO TID #90 capsule 12/23/15 Quetiapine Fumarate [Seroquel -] 200 mg PO BID #60 tablet 12/23/15 Albuterol Sulfate Inhaler - [Ventolin HFA Inhaler -] 2 puff IH Q4HPO PRN #1 inhaler 12/26/15 Amlodipine Besylate [Norvasc -] 10 mg PO DAILY #30 tablet 12/26/15 Budesonide/Formeterol Fumarate [SYMBICORT 80/4.5mcg -] 0 puff IH BID #1 inhaler 12/26/15 Docusate Sodium [Colace -] 100 mg PO TID #90 capsule 12/26/15 Methylprednisolone [Medrol Dose Pernell] 4 mg PO ASDIR #21 tablet 12/26/15 Sitagliptin Phosphate [Januvia -] 50 mg PO DAILY@0700 #30 tablet 12/26/15 levETIRAcetam [Keppra -] 1,000 mg PO BID #60 tablet 12/26/15 metFORMIN HCL [Glucophage -] 500 mg PO BID@0700,1630 #60 tablet 12/26/15 predniSONE [Deltasone -] 40 mg PO DAILY 12/26/15 Aspirin [ASA -] 81 mg PO DAILY 12/28/15 Colchicine 0.6 mg PO DAILY 12/28/15 Lisinopril [Prinivil -] 40 mg PO DAILY 12/28/15 Nifedipine [Procardia Xl] 90 mg PO DAILY 12/28/15 Amitriptyline HCl [Elavil -] 25 mg PO TID #90 tablet 01/01/16 Gabapentin [Neurontin -] 800 mg PO TID #120 capsule 01/01/16 Quetiapine Fumarate [Seroquel -] 400 mg PO HS #30 tablet 01/01/16 Anemia: No Asthma: Yes Cancer: No Cardiac Disorders: No CVA: No COPD: Yes CHF: No Dementia: No Diabetes: Yes GI Disorders: Yes (Acids Reflux) Disorders: No HTN: Yes Hypercholesterolemia: Yes ([employer] CRE[employer]) Kidney Stones: No Liver Disease: No Seizures: Yes (last seizure 8 months ago ) Thyroid Disease: No - Surgical History Abdominal Surgery: No Appendectomy: No Cardiac Surgery: No Cholecystectomy: No Lung Surgery: No Neurologic Surgery: No Orthopedic Surgery: No - Reproductive History PID: No - Suicide/Smoking/Psychosocial Hx Smoking Status: Yes Smoking History: Current every day smoker Have you smoked in the past 12 months: Yes Number of Cigarettes Smoked Daily: 5 Cigars Per Day: 0 'Breaking Loose' booklet given: 12/09/17 Hx Alcohol Use: Yes Drug/Substance Use Hx: Yes Substance Use Type: Alcohol, Cocaine Hx Substance Use Treatment: Yes ([facility] 12/22/15 - 12/26/15) Review of Systems - Review of Systems Respiratory: No: Shortness of Breath Cardiac (ROS): No: Chest Pain Musculoskeletal: Yes: Joint Pain. No: Back Pain, Joint Swelling, Neck Pain Neurological: Yes: Dizziness. No: Headache, Numbness, Tingling, Weakness *Physical Exam - Physical Exam General Appearance: Yes: Appropriately Dressed, Mild Distress Neck: positive: Supple Respiratory/Chest: positive: Lungs Clear, Normal Breath Sounds. negative: Respiratory Distress Cardiovascular: positive: Regular Rate, S1, S2 Gastrointestinal/Abdominal: positive: Soft. negative: Tender Musculoskeletal: positive: Normal Inspection. 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 negative: Facial Droop, Confused, Disoriented Medical Decision Making - Medical Decision Making 12/12/17 17:21 52-year-old female, history of polysubstance abuse, hepatitis C, HIV, hypertension, diabetes, peripheral neuropathy, osteoarthritis, ambulates with walker, sent from inpatient detox facility [facility] for left shoulder pain 2/2 to fall earlier today. Patient was observed on stretcher this afternoon, unable to move left shoulder. States while using her walker at facility, she lost balance after reaching out to get a drink of water. States she landed flat on her back, hitting back of head. Had dizziness initially that has since resolved. Denies LOC and no headache, nausea, vomiting, or blurry vision at this time. Takes baby aspirin daily. Patient states she injured left shoulder during fall and complaining of pain mostly to left shoulder blade with limited range of motion secondary to pain. Denies neck or back pain and able to ambulate since fall per patient See exam L shoulder pain w/ head injury s/p mechanical fall at [facility] today No LOC On baby asa Neuro intact on exam -pain control -XR -CTH -anticipate dc back to detox facility 12/12/17 18:31 Shoulder x-ray negative for fracture. Patient refusing CAT scan in ED despite being told that we are ruling out head bleed, especially given aspirin use. Patient verbalized understanding and still refusing neuroimaging. Does not appear intoxicated at this time, is alert and oriented 3 and appears to have capacity to make own decisions. Rpt HR normalized without intervention. Will discharge back to detox facility with strict return precautions 12/12/17 18:31 *DC/Admit/Observation/Transfer Diagnosis at time of Disposition: Sprain of shoulder, left Qualifiers: Encounter type: initial encounter Shoulder sprain type: unspecified sprain Qualified Code(s): S43.402A - Unspecified sprain of left shoulder joint, initial encounter Head injury Qualifiers: Encounter type: initial encounter Qualified Code(s): S09.90XA - Unspecified injury of head, initial encounter - Discharge Dispostion Disposition: HOME Condition at time of disposition: Improved - Referrals - Patient Instructions Printed Discharge Instructions: DI for Shoulder Sprain Additional Instructions: X-ray of left shoulder was negative for any fracture. Pt most likely sustained a sprain. Given shoulder sling for comfort. Can take motrin every 6 hours as needed for pain. If pain persists after 2 weeks, patient should follow-up with Dr. Lane of orthopedics. Patient refused CAT scan of her head in ER, despite being told that we are ruling out bleeding. Patient was alert and oriented in ER and did not appear intoxicated. Appeared to have capacity to make own decisions and able to verbalize understanding of medical risks to ED staff. Have patient return for any complaints of severe headache, recurrent dizziness, vomiting or visual changes, etc. - Post Discharge Activity
[2017-12-12] MEDS ORDERED: IBUPROFEN 600 MG TABLET (FP) PO ONE (17:52)
[2017-12-12 18:30] VITALS: PULSE 94
== END 2017-12-12 20:30 | disposition home or self-care (01) ==
LOC: JER 17:13
DX: S43.402A Unspecified sprain of left shoulder joint, initial encounter (principal); S09.8XXA Other specified injuries of head, initial encounter; W18.39XA Other fall on same level, initial encounter; Y93.89 Activity, other specified; Y92.238 Other place in hospital as the place of occurrence of the external cause; J45.909 Unspecified asthma, uncomplicated; J44.9 Chronic obstructive pulmonary disease, unspecified; E11.9 Type 2 diabetes mellitus without complications; Z79.84 Long term (current) use of oral hypoglycemic drugs; I10 Essential (primary) hypertension; E78.00 Pure hypercholesterolemia, unspecified; G40.909 Epilepsy, unspecified, not intractable, without status epilepticus; Z21 Asymptomatic human immunodeficiency virus [HIV] infection status; F14.10 Cocaine abuse, uncomplicated; F12.10 Cannabis abuse, uncomplicated; R26.89 Other abnormalities of gait and mobility; Z99.89 Dependence on other enabling machines and devices; Z79.82 Long term (current) use of aspirin
CPT/HCPCS: 73030-TC-LT-FY; 99283-25

== ENCOUNTER 2017-12-13 12:36 | Inpatient (IN) | payer OTHER ==
[2017-12-13 12:48] VITALS: BMI 31.8
--- NOTE | 2017-12-13 13:06 | HP ---
[facility] Assess/Revision - Admission History Ad[facility] (PT COMPLETED DETOX HERE 12/09 TO 12/13/17) Date of Admission to Rehab: 12/13/17 - Vital signs Vital Signs: Vital Signs Period Temp Pulse Resp BP Sys/Mccartney Pulse Ox Last 24 Hr 98.0 F 120 18 161/98 - Findings Detox History & Physical reviewed: Yes Concur with findings: Yes Comments/Additional Findings: ALERT O X 3. NAD. USES WALKER. PT RETURNED HERE TO FOLLOW UP WITH AFTERCARE RECOMMENDATION SINCE NO BED AVAILABLE AT [facility] TODAY. ADMIT TO REHAB.
[2017-12-13] MEDS ORDERED: LOPERAMIDE HCL 2 MG CAPSULE PO PRN (13:14)
[2017-12-13] MEDS ORDERED: MAGNESIUM CITRATE 300 ML BOTTLE PO PRN (13:14)
[2017-12-13] MEDS ORDERED: MAG HYDROX/AL HYDROX/SIMETH 30 ML UNIT-DOSE CUP PO PRN (13:14)
[2017-12-13] MEDS ORDERED: MAGNESIUM HYDROX 2400MG/30ML ORAL SUSPENSION 30 ML CUP PO PRN (13:14)
[2017-12-13] MEDS ORDERED: P-EPHED 60MG/TRIPROLIDI 2.5MG TABLET PO PRN (13:14)
[2017-12-13] MEDS ORDERED: MENTHOL/PHENOL 1 EACH UD MM PRN (13:14)
[2017-12-13] MEDS ORDERED: ACETAMINOPHEN 325 MG TABLET (FP) PO PRN (13:14)
[2017-12-13] MEDS ORDERED: ALBUTEROL SO4 18 GM HFA INHALER IH PRN (13:15)
[2017-12-13] MEDS: GABAPENTIN 400 MG CAPSULE (FP) PO SCH ×2 (14:49→21:15)
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
[2017-12-13] MEDS: metFORMIN HCL 500 MG TABLET (FP) PO SCH (17:00)
[2017-12-13] MEDS ORDERED: PT OWN MED DRAWER 7, Y5N ONE ×2 (21:08→23:26)
[2017-12-13] MEDS: IBUPROFEN 400 MG TABLET (FP) PO PRN (21:15)
[2017-12-13] MEDS: levETIRAcetam 500 MG TABLET (FP) PO SCH (21:16)
[2017-12-13] MEDS: THIAMINE HCL 100 MG TABLET (FP) PO SCH (21:17)
[2017-12-13] MEDS: QUEtiapine FUMARATE 200 MG TABLET PO SCH (21:17)
[2017-12-13] MEDS: guaiFENesin/D-METHORPHAN HB 10 ML UNIT-DOSE CUPS PO PRN (21:17)
[2017-12-13] MEDS: BUDESONIDE/FORMETEROL FUMARATE 80/4.5 mcg INHALER IH SCH (21:19)
[2017-12-14] MEDS: GABAPENTIN 400 MG CAPSULE (FP) PO SCH ×3 (06:27→21:15)
[2017-12-14] MEDS: IBUPROFEN 400 MG TABLET (FP) PO PRN ×2 (06:27→21:17)
[2017-12-14] MEDS: metFORMIN HCL 500 MG TABLET (FP) PO SCH ×2 (06:27→17:18)
[2017-12-14] MEDS: QUEtiapine FUMARATE 200 MG TABLET PO SCH ×3 (06:27→21:15)
[2017-12-14] MEDS ORDERED: PT OWN MED DRAWER 7, Y5N ONE ×5 (07:22→23:47)
[2017-12-14] MEDS: sitaGLIPtin PHOSPHATE 50 MG TABLET PO SCH (07:25)
[2017-12-14] MEDS ORDERED: ALBUTEROL SO4 0.083% IH SOL 2.5 MG/3 ML VIAL.NEB. NEB PRN (07:52)
[2017-12-14] MEDS: LISINOPRIL 20 MG TABLET (FP) PO SCH (10:53)
[2017-12-14] MEDS: PRENATAL VITAMINS W/ FOLIC ACID TABLET (FP) PO SCH (10:54)
[2017-12-14] MEDS: levETIRAcetam 500 MG TABLET (FP) PO SCH ×2 (10:54→21:15)
[2017-12-14] MEDS: amLODIPine BESYLATE 10 MG TABLET (FP) PO SCH (10:54)
[2017-12-14] MEDS: BUDESONIDE/FORMETEROL FUMARATE 80/4.5 mcg INHALER IH SCH ×2 (10:55→21:16)
[2017-12-14] MEDS: COLCHICINE 0.6 MG TABLET (FP) PO SCH (10:56)
[2017-12-14] MEDS: hydrOXYzine PAMOATE 50 MG CAPSULE (FP) PO PRN (14:36)
--- NOTE | 2017-12-14 15:40 | PN ---
[facility] Progress Note (SOAP) Subjective: c/o l sholder and back amanda s/p fall Objective: 12/14/17 15:39 Vital Signs - 24 hr 12/14/17 12/14/17 03:30 06:17 Temperature 97.8 F Pulse Rate 111 H Respiratory 20 20 Rate Blood Pressure 141/95 Laboratory Tests 12/13/17 12/14/17 17:00 06:27 POC Glucometer 144 113 xray old injury noted left shoulder no acute changes Assessment: 12/14/17 15:39 degenerative joint disease left shoulder - new fall on old injury noted start flexeril 10mg tid as requested by jailyn walls.
[2017-12-14] MEDS: CYCLOBENZAPRINE HCL 10 MG TABLET (FP) PO PRN (18:53)
[2017-12-14] MEDS: LIDOCAINE 5% TOPICAL PATCH TP SCH (18:54)
[2017-12-14] MEDS: THIAMINE HCL 100 MG TABLET (FP) PO SCH (21:15)
[2017-12-14] MEDS: LIDOCAINE PATCH REMOVAL MC SCH (21:16)
[2017-12-15] MEDS ORDERED: PT OWN MED DRAWER 7, Y5N ONE ×3 (00:35→21:16)
[2017-12-15 06:55] VITALS: TEMP 97.9
[2017-12-15] MEDS: GABAPENTIN 400 MG CAPSULE (FP) PO SCH ×3 (07:00→21:21)
[2017-12-15] MEDS: metFORMIN HCL 500 MG TABLET (FP) PO SCH ×2 (07:01→17:08)
[2017-12-15] MEDS: QUEtiapine FUMARATE 200 MG TABLET PO SCH ×3 (07:01→21:21)
[2017-12-15] MEDS: sitaGLIPtin PHOSPHATE 50 MG TABLET PO SCH (07:02)
[2017-12-15] MEDS: CYCLOBENZAPRINE HCL 10 MG TABLET (FP) PO PRN (07:03)
[2017-12-15] MEDS: IBUPROFEN 400 MG TABLET (FP) PO PRN (07:03)
[2017-12-15] MEDS: guaiFENesin/D-METHORPHAN HB 10 ML UNIT-DOSE CUPS PO PRN ×2 (07:04→21:25)
[2017-12-15] MEDS ORDERED: cloNIDine HCL 0.1 MG TABLET PO ONE (07:35)
[2017-12-15] MEDS: amLODIPine BESYLATE 10 MG TABLET (FP) PO SCH (09:40)
[2017-12-15] MEDS: PRENATAL VITAMINS W/ FOLIC ACID TABLET (FP) PO SCH (09:40)
[2017-12-15] MEDS: levETIRAcetam 500 MG TABLET (FP) PO SCH ×2 (09:40→21:21)
[2017-12-15] MEDS: COLCHICINE 0.6 MG TABLET (FP) PO SCH (09:40)
[2017-12-15] MEDS: BUDESONIDE/FORMETEROL FUMARATE 80/4.5 mcg INHALER IH SCH ×2 (09:41→21:26)
[2017-12-15] MEDS: LIDOCAINE 5% TOPICAL PATCH TP SCH ×2 (09:41→17:30)
[2017-12-15] MEDS: LISINOPRIL 20 MG TABLET (FP) PO SCH (09:41)
[2017-12-15] MEDS: hydrOXYzine PAMOATE 50 MG CAPSULE (FP) PO PRN (13:13)
[2017-12-15 14:05] LABS: URINE APPEARANCE CLEAR; URINE BILIRUBIN NEGATIVE (NEGATIVE); URINE BLOOD NEGATIVE (NEGATIVE); URINE COLOR YELLOW; URINE GLUCOSE (UA) NEGATIVE (NEGATIVE); URINE KETONE NEGATIVE (NEGATIVE); URINE NITRITE NEGATIVE (NEGATIVE); URINE UROBILINOGEN NEGATIVE mg/dL (0.2-1.0)
[2017-12-15 14:09] LABS: URINE LEUK ESTERASE 1+ (NEGATIVE); URINE PROTEIN 2+ (NEGATIVE)
[2017-12-15 14:19] LABS: EPI CELLS RARE /HPF (FEW); URINE HYALINE CAST 7 /lpf; URINE MUCUS RARE
--- NOTE | 2017-12-15 15:51 | PN ---
[facility] Progress Note (SOAP) Subjective: c/o shoulder and knee pain, wants extrq lidocaine patch Objective: 12/15/17 15:48 Vital Signs - 24 hr 12/15/17 12/15/17 12/15/17 00:30 03:30 06:54 Temperature 97.9 F Pulse Rate 98 H Respiratory 18 18 18 Rate Blood Pressure 159/108 12/15/17 12/15/17 06:55 09:34 Temperature 97.9 F Pulse Rate 98 H 119 H Respiratory 18 Rate Blood Pressure 154/101 157/95 Laboratory Tests 12/13/17 12/14/17 12/15/17 17:00 06:27 07:00 POC Glucometer 144 113 98 Urine Color Urine Appearance Urine pH Ur Specific [place] Urine Protein Urine Glucose (UA) Urine Ketones Urine Blood Urine Nitrite Urine Bilirubin Urine Urobilinogen Ur Leukocyte Esterase Urine WBC (Auto) Urine RBC (Auto) Ur Epithelial Cells Hyaline Casts Urine Mucus 12/15/17 11:50 POC Glucometer Urine Color Yellow Urine Appearance Clear Urine pH 5.0 Ur Specific [place] 1.019 Urine Protein 2+ H Urine Glucose (UA) Negative Urine Ketones Negative Urine Blood Negative Urine Nitrite Negative Urine Bilirubin Negative Urine Urobilinogen Negative Ur Leukocyte Esterase 1+ H D Urine WBC (Auto) 14 Urine RBC (Auto) 1 Ur Epithelial Cells Rare Hyaline Casts 7 Urine Mucus Rare Assessment: 12/15/17 15:50 htn - increase lisnopril schedule clonidine bid, lidodrm patches x3 , d/c ekg will follow up with pcp POST DISCHARGE FOR ABNORMAL EKG, NO SOB OR CHEST PAINR EPORTED.
[2017-12-15] MEDS: PANTOPRAZOLE 40 MG TABLET (FP) PO SCH (17:12)
[2017-12-15] MEDS: THIAMINE HCL 100 MG TABLET (FP) PO SCH (21:21)
[2017-12-15] MEDS: LIDOCAINE PATCH REMOVAL MC SCH (21:22)
[2017-12-15] MEDS: NAPROXEN 500 MG TABLET (FP) PO SCH (21:24)
[2017-12-15] MEDS: cloNIDine HCL 0.1 MG TABLET PO SCH (21:24)
[2017-12-15] MEDS ORDERED: LIDOCAINE PATCH REMOVAL MC SCH (22:00)
[2017-12-16] MEDS ORDERED: PT OWN MED DRAWER 7, Y5N ONE ×2 (00:04→03:16)
[2017-12-16] MEDS: QUEtiapine FUMARATE 200 MG TABLET PO SCH ×2 (06:55→14:35)
[2017-12-16] MEDS: sitaGLIPtin PHOSPHATE 50 MG TABLET PO SCH ×2 (06:55→07:35)
[2017-12-16] MEDS: CYCLOBENZAPRINE HCL 10 MG TABLET (FP) PO PRN (06:55)
[2017-12-16] MEDS: metFORMIN HCL 500 MG TABLET (FP) PO SCH ×2 (06:55→07:35)
[2017-12-16] MEDS: GABAPENTIN 400 MG CAPSULE (FP) PO SCH ×3 (06:55→14:34)
--- NOTE | 2017-12-16 07:07 | PN ---
S Progress Note Note: ASKED TO SEE PT SHE WAS FOUND ON THE FLOOR. PT WAS SEEN AT BEDSIDE LYING ON THE FLOOR ON HER RIGHT SIDE, INCONTINENT OF URINE. CLIENT IS AWAKE BUT WITH SLURRED SPEECH, CONFUSED BUT ABLE TO FOLLOW SIMPLE (POORLY) DIRECTIONS. VS 176/133 P 93 T. 97.9 BGM 109 AWAKE, ALERT CONFUSED, SLURRED SPEECH, INCONTINENT OF URINE LEFT SIDED FACIAL DROOPING NOTED; UNEQUAL SMILE, UNABLE TO STICK OUT TONGUE FOR EVAL PUPILS SMALL NON REACTIVE TO LIGHT DRY BLOOD NOTED IN MOUTH WITH DRY MUCUS MEMBRANES MOVING ALL EXTREMITIES S/P FALL, ? POST ICTAL STATE, R/O TIA P- 911 TO [facility] FOR EVAL REPORT GIVEN TO DR. MENDY ARGUETA PROTOCOL #1
[2017-12-16 07:32] VITALS: BP 176/133; PULSE 93
[2017-12-16] MEDS ORDERED: LISINOPRIL 20 MG TABLET (FP) PO SCH (10:00)
[2017-12-16] MEDS: COLCHICINE 0.6 MG TABLET (FP) PO SCH (10:28)
[2017-12-16] MEDS: levETIRAcetam 500 MG TABLET (FP) PO SCH (10:28)
[2017-12-16] MEDS: cloNIDine HCL 0.1 MG TABLET PO SCH (10:28)
[2017-12-16] MEDS: NAPROXEN 500 MG TABLET (FP) PO SCH (10:29)
[2017-12-16] MEDS: LIDOCAINE 5% TOPICAL PATCH TP SCH (10:29)
[2017-12-16] MEDS: amLODIPine BESYLATE 10 MG TABLET (FP) PO SCH (10:29)
[2017-12-16] MEDS: PRENATAL VITAMINS W/ FOLIC ACID TABLET (FP) PO SCH (10:29)
[2017-12-16] MEDS: PANTOPRAZOLE 40 MG TABLET (FP) PO SCH (10:30)
[2017-12-16] MEDS: BUDESONIDE/FORMETEROL FUMARATE 80/4.5 mcg INHALER IH SCH (10:30)
--- NOTE | 2017-12-17 10:16 | PN ---
S Progress Note Note: callled by pharmacy - concerned about bid dosing of lisinopril. started on bid clonidine, will assess efficacy of additional clonidine in AM before increasing lisinopril further to not decrease BP suddenly, order cancelled as requested.
== END 2017-12-16 14:40 | disposition short-term general hospital (02) | DRG 772 ==
LOC: YASAS 12:36 → Y3E 13:32
PROVIDERS: ADMIT Psychiatry & Neurology Psychiatry; ATTEND Psychiatry & Neurology Psychiatry
PROC: HZ42ZZZ Group Counseling for Substance Abuse Treatment, Cognitive-Behavioral (ICD-10-PCS; principal; 2017-12-13)
DX: F10.230 Alcohol dependence with withdrawal, uncomplicated (principal); F14.20 Cocaine dependence, uncomplicated; F17.213 Nicotine dependence, cigarettes, with withdrawal; F25.1 Schizoaffective disorder, depressive type; Z21 Asymptomatic human immunodeficiency virus [HIV] infection status; I10 Essential (primary) hypertension; E11.9 Type 2 diabetes mellitus without complications; M10.9 Gout, unspecified; G62.9 Polyneuropathy, unspecified; B18.2 Chronic viral hepatitis C; L30.9 Dermatitis, unspecified; R26.89 Other abnormalities of gait and mobility; Z99.89 Dependence on other enabling machines and devices; J44.9 Chronic obstructive pulmonary disease, unspecified; Z79.84 Long term (current) use of oral hypoglycemic drugs
CPT/HCPCS: 81003; 81015; 82962; J0735

== ENCOUNTER → 2017-12-16 | Emergency (ER) | payer OTHER ==
[~2017-12-16] MED LIST: LABETALOL HCL 5 MG/1 ML (100MG/20 ML VIAL) IVPUSH ONE; SODIUM CHLORIDE 1,000 ML IV SCH
--- NOTE | 2017-12-16 07:49 | PDOC ---
History of Present Illness - General Stated Complaint: POSSIBLE STROKE Time Seen by Provider: 12/16/17 07:28 - History of Present Illness Initial Comments: 12/16/17 07:32 52 yo F with multiple medical comorbidities including HTN, seizure disorder, schitzoaffective disorder with multiple suicide attempts x 4, NIDDM, HIV, gout, arhtirits, alcohol dependence, cocaine use, who arrives from [facility] with right sided weakness, facial droop, slurred speech. 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 Pt. was alert, and awake this AM, with right sided facial droop, rt. sided weakness, dysarthric, and with urinary incontinence. Past History - Past Medical History Allergies/Adverse Reactions: Allergies Allergy/AdvReac Type Severity Reaction Status Date / Time aripiprazole [From Abilify] Allergy Intermediate Verified 12/16/17 07:31 chlorpromazine HCl Allergy Intermediate Verified 12/16/17 07:31 [From Thorazine] Penicillins Allergy Intermediate Rash Verified 12/16/17 07:31 risperidone [From Risperdal] Allergy Intermediate Verified 12/16/17 07:31 sulfamethoxazole Allergy Intermediate Rash Verified 12/16/17 07:31 [From Bactrim] trimethoprim [From Bactrim] Allergy Intermediate Rash Verified 12/16/17 07:31 ziprasidone HCl [From Geodon] Allergy Intermediate Verified 12/16/17 07:31 ziprasidone mesylate Allergy Intermediate Verified 12/16/17 07:31 [From Geodon] Home Medications: Ambulatory Orders Quetiapine Fumarate [Seroquel -] 200 mg PO BID #60 tablet 12/23/15 Quetiapine Fumarate [Seroquel -] 400 mg PO HS #30 tablet 01/01/16 Albuterol Sulfate Inhaler - [Ventolin HFA Inhaler -] 2 puff IH Q4HPO PRN #1 inhaler 12/13/17 Amlodipine Besylate [Norvasc -] 10 mg PO DAILY #30 tablet 12/13/17 Budesonide/Formeterol Fumarate [SYMBICORT 80/4.5mcg -] 0 puff IH BID #1 inhaler 12/13/17 Colchicine 0.6 mg PO DAILY #30 capsule 12/13/17 Gabapentin [Neurontin -] 800 mg PO TID #90 capsule 12/13/17 Lisinopril [Prinivil -] 40 mg PO DAILY #30 tablet 12/13/17 Sitagliptin Phosphate [Januvia -] 50 mg PO DAILY@0700 #30 tablet 12/13/17 levETIRAcetam [Keppra -] 1,000 mg PO BID #60 tablet 12/13/17 metFORMIN HCL [Glucophage -] 500 mg PO BID@0700,1630 #60 tablet 12/13/17 Anemia: No Asthma: Yes Cancer: No Cardiac Disorders: No CVA: No COPD: Yes CHF: No Dementia: No Diabetes: Yes GI Disorders: No Disorders: No HTN: No Hypercholesterolemia: Yes (ON CRESTOR) Kidney Stones: No Liver Disease: No Seizures: No (alcohol related) Thyroid Disease: No - Surgical History Abdominal Surgery: No Appendectomy: No Cardiac Surgery: No Cholecystectomy: No Lung Surgery: No Neurologic Surgery: No Orthopedic Surgery: No - Reproductive History PID: No - Suicide/Smoking/Psychosocial Hx Smoking Status: Yes Smoking History: Current every day smoker Have you smoked in the past 12 months: Yes Number of Cigarettes Smoked Daily: 5 Cigars Per Day: 0 'Breaking Loose' booklet given: 12/09/17 Hx Alcohol Use: Yes Drug/Substance Use Hx: Yes Substance Use Type: Alcohol, Cocaine Hx Substance Use Treatment: Yes (left AMA this program in 2016) Review of Systems - Review of Systems Comments:: 12/16/17 08:06 Unable to assess. *Physical Exam - Physical Exam Comments: 12/16/17 08:36 GENERAL: Awake, alert, and oriented to place and date. HEAD: No signs of trauma, normocephalic, atraumatic EYES: PERRLA, EOMI, sclera anicteric, conjunctiva clear. ENT: Hearing grossly normal, nares patent, oropharynx clear without exudates. Moist mucosa NECK: Normal ROM, supple, no lymphadenopathy, JVD, or masses LUNGS: No distress, speaks full sentences, clear to auscultation bilaterally HEART: Regular rate and rhythm, normal S1 and S2, no murmurs, rubs or gallops, peripheral pulses normal and equal bilaterally. ABDOMEN: Soft, nontender, normoactive bowel sounds. No guarding, no rebound. No masses EXTREMITIES : Normal inspection, Normal range of motion, no edema. No clubbing or cyanosis. NEUROLOGICAL: Cranial nerves II through XII grossly intact. Speech slurred,gait not assessed. R and L UE strength 3/5. LLE 3/5, and RLE 0. Sensation to pinprick absent in RLE. Unable to ellicit LE patellar reflexes.BL UE brachial reflex symmetric. Rt sided facial movment decreased. Absent Rt sided dysmetria on FTN. SKIN: Warm, Dry, normal turgor, no rashes or lesions noted General Appearance: Yes: Nourished NIH Stroke Scale - Last Known Well Date/Time & Onset Date Last Known Well: 12/16/17 Time Last Known Well: 03:30 - Initial Evaluation Level of consciousness: Alert Ask patient the month and their age: Answers both correctly Ask patient to open & close eyes; make fist and let go: Obeys both correctly Best gaze (horizontal eye movement): Normal Visual field testing: No visual field loss Facial paresis (Show teeth/raise eyebrows/close eyes tight): Partial paralysis ( total or near paralysis of lower face) Motor Function: Left Arm: Some effort against gravity Motor Function: Right Arm: Some effort against gravity Motor Function: Left Leg: Some effort against gravity Motor Function: Right Leg: No movement Limb Ataxia: Untestable (Joint fused or limb amputated), explain: Sensory(Use pinprick test arms,legs,trunk,face/side to side): Mild to moderate decrease in sensation Best language (Describe picture, name items, read sentences): Mild to moderate aphasia Dysarthria (read several words): Mild to moderate slurring of words Extinction and Inattention: Inattention or extinction bilaterally to one of the sensory modalities - Total Score NIH Stroke Scale Score: 16 TIA Risk Factors - ABCD Score Age: Age = or > 60 Blood Pressure: SBP =/> 140 Clinical Features of TIA: Uni wk w/wo speech impair Duration: TIA duration = or > 60min Diabetes: Yes Total ABCD2 Score (0-7):: 7 Critical Care Time/MDM Note - Medical Decision Making Note: 12/16/17 07:49 52 yo F with multiple medical comorbidities including HTN, seizure disorder, schitzoaffective disorder with multiple suicide attempts x 4, NIDDM, HIV, gout, arthritis, alcohol dependence, cocaine use, who arrives from [facility] ( completed detox 12/09/17-12/13) with BP 180/110 and awake and alert with right sided facial droop, rt. sided weakness, dysarthric, and with urinary incontinence. 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 Last well known (0330~12/16/17). Baseline pt. ambulates with walker. Not on anticoagulation. Currently BP 176/133. Physical exam noteable for Absent RLE movement and BL UE weakness, rt sided facial droop, and diminished rt. sided facial movement. NIHSS~16 Differential includes CVA/TIA, Todds paralysis/ seizure, hypoglycemia ED Course: 12/16/17 08:07 CVA/TIA protocol, elevate head of bed CBC, CMP, PT/INR, aPTT, Cardiac Pr, lactic acid EKG: Radiology: Acute bleed left thalamus: Narrowing 3rd ventricle. Mildline shift Attempted to contact Dr. Avila neurosurgeon environmental health safety manager who is out of [place]. Dr. Trivedi 7:40 PM answering service. Not environmental health safety manager. Dr. Trivedi call back at 0810. BP 175/100. Labetalol 10 mg IV 12/16/17 08:14 Dr. [facility] accepts pt. Goal BP 140. Pt. to OR for Ventriculopathy 12/16/17 08:25 BP 167/93 12/16/17 08:40 BP now 142/99 NIHSS unchanged. Pt. sent to [place]. She is stable and A&O3 in no acute distress. Discharge Disposition - Diagnosis Hemorrhagic stroke, Hypertensive emergency - Discharge Dispostion Disposition: TRANSFER ACUTE CARE/OTHER HOSP Condition at time of disposition: Critical Admit: No - Referrals - Patient Instructions - Post Discharge Activity - Transfer to Acute Care Facility Receiving Facility: [facility]. Accepting Physician:: Dr. Brooks
--- NOTE | 2017-12-16 07:53 | PDOC ---
Attending Attestation - Resident Resident Name: Jovany Baldwin - ED Attending Attestation I have performed the following: I have examined & evaluated the patient, The case was reviewed & discussed with the resident, I agree w/resident's findings & plan, Exceptions are as noted - HPI HPI: 12/16/17 08:01 52y F hx of polysybstance abuse, hcv, hiv, htn, dm, peripheral neuropathy, presents as possible stroke. last known normal was at 3:30am when staff nurse saw her. on presentation by ems, the pt was noted to be hypertensive, was alert and awake, but hemiparetic on R side, also with slurred speech. I was bedside immeidiately upon arrival. Mau piper was called upon arrival. CT head showed L thalamic hemorrhage likely secondary to hypertension pts bp on arrival was 190s/[address] was 165/100 - will give labetalol for htn control goal sbp 140 pt denies any headache currently 12/16/17 08:35 ptp accepted for transfer to [facility] pt clnical exam unchanged, alert x oriented x 2 able to lift L arm and L leg against gravity (L leg weaker than L arm) able to move R arm slightly, wiggle fingers no movement of R leg pupils 2mm b/l CRITICAL CARE DOCUMENTATION: I spent ~35 minutes of Critical Care time, excluding separately billable procedures, involving high complexity decision making to assess, manipulate and support vital system function(s) to treat single or multiple vital organ system failure and/or to prevent further life threatening deterioration of the patient' s condition. - Physicial Exam PE: 12/16/17 08:37 GENERAL: The patient is awake, alert oriented x 2, alittle lethargic but arousable easily by verbal stimulus HEAD: Normocephalic, atraumatic. EYES: unable to gaze to right ENT: Normal voice, dry mucous membranes. NECK: Normal range of motion, supple LUNGS: Breath sounds equal, clear to auscultation bilaterally. No wheezes, no rhonchi, no rales. HEART: Regular rate and rhythm, normal S1 and S2 without murmur, rub or gallop. ABDOMEN: Soft, nontender, EXTREMITIES: no edema. NEUROLOGICAL: R facial weakness, unable to gaze to right, R sided waekness able to lift L arm and L leg against gravity (L leg weaker than L arm) able to move R arm slightly, wiggle fingers no movement of R leg pupils 2mm b/l PSYCH: Normal mood, normal affect. 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 pt unable to sign transfer document The patient was seen and examined to determine medical stability. The patient is MEDICALLY STABLE at this time. Labs, EKG, radiological studies were ordered to expedite the patient's care. I certify that I have discussed with the patient and/or his personal service representative the following risks and benefits of the proposed transfer. Risks include worsening of patients condition during transport,auto accident, or permanent disability. Benefits include receiving specialized care not available at this facility. I certify that, based on the information available at this time, the medical benefits reasonably expected from the provision of appropriate medical treatment at the receiving facility outweigh the increased risk to the patient. I believe the patient/relative/guardian understands what I have explained and answered. The patient will be transferred to the service of Dr. Foster at [facility] Heart Score/ECG Review - ECG Impressions Comment:: 12/16/17 08:41 Twelve-lead EKG was performed and reviewed by me. There is normal sinus rhythm with a normal rate. Rate of [address]-T wave changes suggestive of acute ischemia NIH Stroke Scale - Last Known Well Date/Time & Onset Date Last Known Well: 12/16/17 Time Last Known Well: 03:30 - Initial Evaluation Level of consciousness: Alert Ask patient the month and their age: Answers both correctly Ask patient to open & close eyes; make fist and let go: Obeys both correctly Best gaze (horizontal eye movement): Partial gaze palsy Visual field testing: No visual field loss Facial paresis (Show teeth/raise eyebrows/close eyes tight): Partial paralysis ( total or near paralysis of lower face) Motor Function: Left Arm: Drift Motor Function: Right Arm: Some effort against gravity Motor Function: Left Leg: Some effort against gravity Motor Function: Right Leg: No movement Limb Ataxia: Untestable (Joint fused or limb amputated), explain: (limited exm due ot weakness) Sensory(Use pinprick test arms,legs,trunk,face/side to side): Normal Best language (Describe picture, name items, read sentences): Mild to moderate aphasia Dysarthria (read several words): Mild to moderate slurring of words Extinction and Inattention: No abnormality - Total Score NIH Stroke Scale Score: 14
[2017-12-16 08:08] VITALS: BMI 32.8
[2017-12-16 08:14] LABS: BASO % 1.1 % (0-2.0); EOS % 3.3 % (0-4.5); HEMATOCRIT 35.3 % (32.4-45.2); HEMOGLOBIN 11.7 GM/dL (10.7-15.3); LYMPH % 26.4 % (8-40); MCH 28.8 pg (25.7-33.7); MCHC 33.2 g/dl (32.0-36.0); MEAN CELL VOLUME 86.8 fl (80-96); MEAN PLT VOLUME 7.8 fl (7.5-11.1); MONO % 11.8 % (3.8-10.2); NEUT % 57.4 % (42.8-82.8); PLATELET COUNT 311 K/MM3 (134-434); RBC 4.07 M/mm3 (3.60-5.2); RDW 15.2 % (11.6-15.6)
[2017-12-16 08:22] LABS: INR 0.93 (0.82-1.09); PROTHROMBIN TIME (PATIENT) 10.5 SEC (9.98-11.88)
[2017-12-16 08:24] LABS: CHLORIDE 107 mmol/L (98-107); POTASSIUM 3.9 mmol/L (3.5-5.1); SODIUM 140 mmol/L (136-145)
[2017-12-16 08:28] LABS: ALBUMIN 2.7 g/dl (3.4-5.0); ANION GAP 8 (8-16); BLOOD UREA NITROGEN 14 mg/dL (7-18); CALCIUM 8.4 mg/dL (8.5-10.1); CO2 25 mmol/L (21-32); GLUCOSE,RANDOM 91 mg/dL (74-106)
[2017-12-16 08:31] LABS: BILIRUBIN,TOTAL 0.1 mg/dL (0.2-1.0); CHOLESTEROL 128 mg/dL (50-200); CREATININE 0.7 mg/dL (0.55-1.02); LDL CHOLESTEROL (ONLY SJRH) 53 mg/dL (5-100); SGOT/AST 61 U/L (15-37); SGPT/ALT 42 U/L (12-78); TOT PROT 7.9 g/dl (6.4-8.2); TRIGLYCERIDES 126 mg/dL (35-160)
[2017-12-16 08:32] LABS: ALK PHOS 74 U/L (45-117); HDL CHOLESTEROL 61 mg/dL (40-60)
[2017-12-16 09:08] VITALS: BP 144/99; PULSE 89; TEMP 97.6
--- NOTE | 2017-12-16 16:34 | EKG ---
Test Reason : Blood Pressure : / mmHG Vent. Rate : 089 BPM Atrial Rate : 089 BPM P-R Int : 178 ms QRS Dur : 082 ms QT Int : 374 ms P-R-T Axes : 058 -12 054 degrees QTc Int : 455 ms NORMAL SINUS RHYTHM POSSIBLE LEFT ATRIAL ENLARGEMENT SEPTAL INFARCT (CITED ON OR BEFORE 09-DEC-2017) ABNORMAL ECG WHEN COMPARED WITH ECG OF 10-DEC-2017 09:09, QUESTIONABLE CHANGE IN INITIAL FORCES OF SEPTAL LEADS T WAVE AMPLITUDE HAS INCREASED IN ANTERIOR LEADS Confirmed by BUSHRA BURDEN MD ([id number]) on 12/16/2017 4:34:28 PM Referred By: Confirmed By:BUSHRA UBRDEN MD
== END | disposition short-term general hospital (02) ==
LOC: JER 07:26
PROC: 3E033GC Introduction of Other Therapeutic Substance into Peripheral Vein, Percutaneous Approach (ICD-10-PCS; principal; 2017-12-16)
DX: I61.8 Other nontraumatic intracerebral hemorrhage (principal); I16.1 Hypertensive emergency; R47.02 Dysphasia; R29.810 Facial weakness; G81.91 Hemiplegia, unspecified affecting right dominant side; I10 Essential (primary) hypertension; F17.210 Nicotine dependence, cigarettes, uncomplicated; E11.9 Type 2 diabetes mellitus without complications; G40.909 Epilepsy, unspecified, not intractable, without status epilepticus; F25.9 Schizoaffective disorder, unspecified; F10.20 Alcohol dependence, uncomplicated; Z91.5 Personal history of self-harm; M10.9 Gout, unspecified; G62.9 Polyneuropathy, unspecified; R26.89 Other abnormalities of gait and mobility; Z99.89 Dependence on other enabling machines and devices; Z21 Asymptomatic human immunodeficiency virus [HIV] infection status; B18.2 Chronic viral hepatitis C
CPT/HCPCS: 36415; 70450-TC; 80053; 82465; 82550; 82962; 83605; 83718; 83721; 84478; 84484; 85025; 85610; 86850; 86900; 86901; 93005; 93010; 99285-25; J7030